=== PATIENT | male | born 1970 | race Caucasian/White ===

== ENCOUNTER 2018-07-12 09:45 | Emergency (ER) | payer MEDICAID ==
[~2018-07-12] VITALS: Ht 185.4 cm; Wt 98.0 kg
[2018-07-12 09:50] VITALS: BP 132/110
[2018-07-12] MEDS ORDERED: dexamethasone sod phosphate 10mg/ml inj IM STA (10:31)
[2018-07-12] MEDS ORDERED: CYCL-1 PO (10:33)
[2018-07-12] MEDS ORDERED: ketorolac trometh inj. 60 MG/2 ML VIAL IM ONE (10:35)
== END 2018-07-12 10:58 | disposition home or self-care (01) ==
LOC: ER 09:46
DX: S39.012A Strain of muscle, fascia and tendon of lower back, initial encounter (principal); M54.42 Lumbago with sciatica, left side; G89.29 Other chronic pain; X50.1XXA Overexertion from prolonged static or awkward postures, initial encounter; Y93.89 Activity, other specified; Y92.89 Other specified places as the place of occurrence of the external cause; Y99.9 Unspecified external cause status
CPT/HCPCS: 96372; 99284; J1100; J1885

== ENCOUNTER 2019-08-04 10:57 | Emergency (ER) | payer MEDICAID ==
[~2019-08-04] VITALS: Ht 188 cm; Wt 105.0 kg
[~2019-08-04 10:57] MED LIST: CYCL-1 PO
[2019-08-04 11:06] VITALS: BP 133/89
[2019-08-04] MEDS ORDERED: ketorolac tromethamine 15mg/ml inj. IM ONE (11:30)
[2019-08-04] MEDS ORDERED: orphenadrine citrate 60mg/2ml inj. IM ONE (11:30)
[2019-08-04] MEDS ORDERED: NAPR-56 PO (11:33)
[2019-08-04] MEDS ORDERED: METH-360 PO (11:33)
== END 2019-08-04 11:50 | disposition home or self-care (01) ==
LOC: ER 10:58
DX: M54.42 Lumbago with sciatica, left side (principal); M54.41 Lumbago with sciatica, right side; G89.29 Other chronic pain; F17.200 Nicotine dependence, unspecified, uncomplicated; F10.99 Alcohol use, unspecified with unspecified alcohol-induced disorder; Z60.2 Problems related to living alone; Z79.899 Other long term (current) drug therapy; Y90.9 Presence of alcohol in blood, level not specified
CPT/HCPCS: 96372; 99283; J1885; J2360

== ENCOUNTER 2019-10-13 07:15 | Emergency (ER) | payer MEDICAID ==
[~2019-10-13] VITALS: Ht 188 cm; Wt 100.0 kg
[~2019-10-13 07:15] MED LIST changes: +METH-360 PO
[2019-10-13 07:31] VITALS: BP 138/93
== END 2019-10-13 07:41 | disposition home or self-care (01) ==
LOC: ER 07:16
DX: Z00.00 Encounter for general adult medical examination without abnormal findings (principal); F10.10 Alcohol abuse, uncomplicated; G89.29 Other chronic pain; Z60.2 Problems related to living alone; Z79.899 Other long term (current) drug therapy; Y90.9 Presence of alcohol in blood, level not specified
CPT/HCPCS: 99281

== ENCOUNTER 2020-12-20 08:51 | Emergency (ER) | payer MEDICAID ==
[~2020-12-20] VITALS: Ht 185.4 cm; Wt 90.9 kg
[2020-12-20 09:22] VITALS: BP 123/81
[2020-12-20] MEDS ORDERED: ketorolac tromethamine 15mg/ml inj. IM ONE (10:00)
[2020-12-20] MEDS ORDERED: orphenadrine citrate 60mg/2ml inj. IM ONE (10:00)
[2020-12-20] MEDS ORDERED: IBUP-1984 PO (10:03)
[2020-12-20] MEDS ORDERED: TRAM50TA2 PO (10:03)
[2020-12-20] MEDS ORDERED: CYCL-1 PO (10:21)
== END 2020-12-20 10:32 | disposition home or self-care (01) ==
LOC: ER 08:52
DX: M54.42 Lumbago with sciatica, left side (principal); G89.29 Other chronic pain; Z72.89 Other problems related to lifestyle; Z60.2 Problems related to living alone; Z79.899 Other long term (current) drug therapy
CPT/HCPCS: 96372; 99284; J1885; J2360

== ENCOUNTER 2021-01-03 10:17 | Emergency (ER) | payer MEDICAID ==
[~2021-01-03] VITALS: Ht 185.4 cm; Wt 86.4 kg
[2021-01-03 10:20] VITALS: BP 125/78
[2021-01-03] MEDS ORDERED: METH4TAB81 PO (11:36)
[2021-01-03] MEDS ORDERED: IBUP-1984 PO (11:36)
[2021-01-03] MEDS ORDERED: ketorolac tromethamine 15mg/ml inj. IM ONE (11:40)
== END 2021-01-03 11:56 | disposition home or self-care (01) ==
LOC: ER 10:18
DX: M54.30 Sciatica, unspecified side (principal); G89.29 Other chronic pain; Z72.89 Other problems related to lifestyle; Z60.2 Problems related to living alone; Z79.899 Other long term (current) drug therapy
CPT/HCPCS: 96372; 99283; J1885

== ENCOUNTER 2021-10-21 10:50 | Emergency (ER) | payer MEDICAID ==
[~2021-10-21] VITALS: Ht 182.9 cm; Wt 84.1 kg
[~2021-10-21 10:50] MED LIST changes: +METH4TAB81 PO
[2021-10-21 11:00] VITALS: BP 143/83
[2021-10-21] MEDS ORDERED: NAPR-56 PO (12:12)
[2021-10-21] MEDS ORDERED: LIDO700A32 TOP (12:12)
== END 2021-10-21 12:21 | disposition home or self-care (01) ==
LOC: ER 10:50
DX: S20.212A Contusion of left front wall of thorax, initial encounter (principal); R07.89 Other chest pain; G89.29 Other chronic pain; F17.200 Nicotine dependence, unspecified, uncomplicated; Z72.89 Other problems related to lifestyle; Z60.2 Problems related to living alone; Z79.899 Other long term (current) drug therapy; X58.XXXA Exposure to other specified factors, initial encounter; Y93.89 Activity, other specified; Y92.89 Other specified places as the place of occurrence of the external cause; Y99.8 Other external cause status
CPT/HCPCS: 71045; 99283

== ENCOUNTER 2024-03-16 12:18 | Emergency (ER) | payer MEDICAID ==
[~2024-03-16] VITALS: Ht 185.4 cm; Wt 93.0 kg
[~2024-03-16 12:18] MED LIST changes: +LIDO700A32 TOP
[2024-03-16 12:50] VITALS: BP 145/91; PULSE 69; TEMP 98; O2SAT 99
[2024-03-16] MEDS ORDERED: TRAM50TA2 PO (13:52)
[2024-03-16] MEDS ORDERED: ketorolac trometh. 30mg/ml inj. IM ONE (14:00)
[2024-03-16 14:12] VITALS: RESP 16
[2024-03-16] MEDS: ketorolac tromethamine 15mg/ml inj. IM ONE (14:12)
== END 2024-03-16 14:16 | disposition home or self-care (01) ==
LOC: ER 12:18
DX: S82.831A Other fracture of upper and lower end of right fibula, initial encounter for closed fracture (principal); Z79.899 Other long term (current) drug therapy; X58.XXXA Exposure to other specified factors, initial encounter; Y93.89 Activity, other specified; Y92.89 Other specified places as the place of occurrence of the external cause; Y99.8 Other external cause status
CPT/HCPCS: 73610; 73630; 96372; 99284; J1885; L4360

== ENCOUNTER 2025-07-06 14:09 | Emergency (ER) | payer MEDICAID ==
[~2025-07-06] VITALS: Ht 182.9 cm; Wt 91.5 kg
[~2025-07-06 14:09] MED LIST changes: +LIDO-52 TOP; -LIDO700A32 TOP
[2025-07-06 14:11] VITALS: TEMP 97.9
--- NOTE | 2025-07-06 14:34 | Physician Documentation ---
History of Present Illness ~ Chief Complaint: ETOH Stated Complaint: ETOH Time Seen by MD: 14:25 Primary Medical Doctor: NONE Mode of Arrival: EMS HPI 55-year-old male presents to the ED after relapsing on alcohol if you weeks ago. He presents very intoxicated according to EMS there was three empty 0.5 gal bottles of hard alcohol where they found him. Patient denies any falls. Denies any history of seizures. Unable to currently care for himself due to severe intoxication Tetanus within 5 years?: Yes (2019) Medication Reconciliation Allergies: Coded Allergies: No Known Allergies (Unverified , 07/12/18) Scheduled Cyclobenzaprine* (Cyclobenzaprine*), 1 TAB PO Q8H Lidocaine (Lidoderm), 1 PATCH TOP DAILY Methocarbamol (Robaxin-750), 1 TAB PO HS Methylprednisolone (Medrol Dosepak), 1 PACKET PO UD Scheduled PRN Cyclobenzaprine* (Cyclobenzaprine*), 1 TABLET PO Q8H PRN for muscle spasms Past Medical History Past Medical History: *MUSCULOSKELETAL*, Chronic Back Pain Past Surgical History: no surgical history Alcohol Use: Abuse Drug Use: none Lives with: Alone Lives In: Home Occupation: employed Review of Systems All Other Systems at this time: Reviewed and Negative ROS As stated above in the HPI, otherwise all systems are reviewed and negative. Physical Exam Vital Signs: RN Vital Signs have been reviewed: Yes, Temperature: 97.9, Heart Rate: 121, Respiratory Rate: 16, BP: 123/82, Pulse Oximetry: 96, Weight: 91.500 Oxygen Flow Rate: 0 Physical Exam General: Alert, slurred spech Respiratory: Lungs clear, no respiratory distress. Cardiovascular: Regular rate and rhythm, no murmurs. Gastrointestinal: Soft, nontender, nondistended. Bowels sounds present. Neurologic: Oriented x4. Psychiatric: Difficult to redirect Skin: Normal color, warm and dry. No edema, no ecchymosis. Progress Progress Note faith patient requesting d/c, i evaluated him at bedside he is not slurring his speech, he is able to stand on his own. no nausea or vomiting. Girlfriend is here and sober to take him home Results/Orders Reviewed/noted all lab results: Yes Results/Orders Medications Received in ER Medications (Trade) Dose Ordered Sig/Josh Route PRN Reason Start Time Stop Time Status Last Admin Dose Admin (0.9% sodium chloride (NS) 1000ml IV soln) 2,000 ml ONCE ONCE IVB 07/06/25 14:30 07/06/25 14:31 DC 07/06/25 14:56 2,000 ML (folic acid inj.) 1 mg ONCE ONCE IV 07/06/25 14:35 07/06/25 14:38 DC 07/06/25 14:57 1 MG (thiamine inj.) 100 mg ONCE ONCE IV 07/06/25 14:35 07/06/25 14:44 DC 07/06/25 14:56 100 MG Vital Signs 07/06/25 07/06/25 07/06/25 07/06/25 14:11 14:15 15:58 17:35 Temp 97.9 Pulse 121 81 69 Resp 17 16 16 18 B/P (MAP) 123/82 157/77 (103) 107/55 (72) Pulse Ox 96 96 99 O2 Flow Rate 0 0 0 Laboratory Tests Test 07/06/25 14:55 07/06/25 15:36 07/06/25 16:03 CBC Comment Sodium Level 134 L Potassium Level 3.7 Chloride Level 96 L Carbon Dioxide Level 20.6 L Anion Gap 17 H Blood Urea Nitrogen 14 Creatinine 0.82 Estimated GFR/1.73 m2 > 90 BUN/Creatinine Ratio 17.1 Glucose Level 105 H Calcium Level 8.6 Magnesium Level 2.1 Total Bilirubin 1.0 Aspartate Amino Transf (AST/SGOT) 108 H Alanine Aminotransferase (ALT/SGPT) 139 H Alkaline Phosphatase 87 Total Protein 8.5 H Albumin 3.9 Globulin 4.6 H Albumin/Globulin Ratio 0.8 L Lipase 59 Chemistry Comments Ethyl Alcohol Level 399 H White Blood Count 4.6 Red Blood Count 5.02 Hemoglobin 16.7 Hematocrit 48.5 Mean Corpuscular Volume 96.6 Mean Corpuscular Hemoglobin 33.3 H Mean Corpuscular Hemoglobin Concent 34.5 Red Cell Distribution Width 15.3 H Platelet Count 210 Mean Platelet Volume 7.9 Neutrophils (%) (Auto) 52.4 Lymphocytes (%) (Auto) 37.1 Monocytes (%) (Auto) 9.9 Eosinophils (%) (Auto) 0.2 Basophils (%) (Auto) 0.4 Neutrophils # (Auto) 2.4 Lymphocytes # (Auto) 1.7 Monocytes # (Auto) 0.5 Eosinophils # (Auto) 0.0 Basophils # (Auto) 0.0 Urine Specimen Description Voided Urine Color Yellow Urine Clarity Slightly cloudy Urine pH 6.0 Urine Specific Nelson 1.010 Urine Protein Negative Urine Glucose (UA) Negative Urine Ketones 40 H Urine Occult Blood Trace-intact Urine Nitrite Negative Urine Bilirubin Negative Urine Urobilinogen 0.2 Urine Leukocyte Esterase Trace H Urine RBC 0-2 Urine WBC 10-20 H Urine Squamous Epithelial Cells Few Urine Bacteria 4+ Urine Culture Indicated Indicated Volume Urine Centrifuged 10 ml Urine Comment Microbiology Date/Time Source Procedure Growth Status 07/06/25 16:55 Urine Voided Urine Culture - Preliminary Culture received. Resulted Medical Decision Making Additional information obtaine: old records Findings simple alcohol intoxication Differential Dx:Considerations: Intoxication - ETOH Departure Disposition: HOME / SELF CARE / HOMELESS Impression: Primary Impression: Alcoholic intoxication Qualified Codes: F10.920 - Alcohol use, unspecified with intoxication, uncomplicated Additional Instructions: Let him sleep on his side tonight. Referrals: NO PRIMARY CARE PROVIDER (PCP) Signature Scribe Signature: gf Attestation: Scribed for Flakito Granados [employer] by Flakito Morales NP . 07/06/25 14:33 FLAKITO GRANADOS NP Jul 06, 2025 14:34 CORAL JAIMES MD Jul 06, 2025 18:02
[2025-07-06] MEDS: thiamine 100mg/ml 2ml inj. IV ONE (14:56)
[2025-07-06] MEDS: normal saline 1000ML IV soln IVB ONE (14:56)
[2025-07-06] MEDS: folic acid 1mg/0.2ml inj IV ONE (14:57)
[2025-07-06 15:17] LABS: CREATININE 0.82 MG/DL (0.60-1.10); TOTAL CARBON DIOXIDE 20.6 MMOL/L (24-32); eCRCL 112 ML/MIN; eGFR > 90 ML/MIN
[2025-07-06 15:30] LABS: ETHANOL 399 MG/DL (<10)
[2025-07-06 15:46] LABS: MEAN PLATELET VOLUME 7.9 FL (7.4-10.4); RED CELL DISTRIBUTION WIDTH 15.3 % (11.5-14.5)
[2025-07-06 16:25] LABS: LEUKOCYTE ESTERASE ,URINE TRACE (Neg); NITRITES, URINE NEGATIVE (Neg); OCCULT BLOOD,URINE TRACE-INTACT (Neg)
[2025-07-06 16:53] LABS: UA COLLECTION TYPE VOIDED
[2025-07-06 16:54] LABS: SQUAMOUS EPITHELIAL CELL,UR FEW /LPF (FEW)
[2025-07-06 17:35] VITALS: BP 107/55; PULSE 69; RESP 18; O2SAT 99
== END 2025-07-06 18:20 | disposition home or self-care (01) ==
LOC: ER 14:09
DX: F10.129 Alcohol abuse with intoxication, unspecified (principal); R06.02 Shortness of breath; Z79.899 Other long term (current) drug therapy; Y90.9 Presence of alcohol in blood, level not specified
CPT/HCPCS: 36415; 80053; 80320; 81001; 83690; 83735; 85025; 87077; 87088; 87186; 96361; 96374; 96375; 99284; J3411; J3490; J7030

== ENCOUNTER 2025-07-07 09:54 | Emergency (ER) | payer MEDICAID ==
[~2025-07-07] VITALS: Ht 185.4 cm; Wt 90.1 kg
[2025-07-07 10:03] VITALS: BP 165/108; PULSE 115; TEMP 98.3; O2SAT 96
--- NOTE | 2025-07-07 10:19 | Physician Documentation ---
History of Present Illness ~ Chief Complaint: Medical Clearance Stated Complaint: MED CLEARANCE OK to notify your PCP?: Yes Primary Medical Doctor: NONE Source: patient Mode of Arrival: POV Exam Limitations: no limitations HPI 55-year-old male presents for clearance to go to alcohol detox center. He states last drink was Thursday night. He says that he was here last night showing signs of withdrawal symptoms but this morning is feeling much better. Still is sweaty and has slight tremors. Tetanus within 5 years?: Yes (2019) Medication Reconciliation Allergies: Coded Allergies: No Known Allergies (Unverified , 07/07/25) Scheduled Cyclobenzaprine* (Cyclobenzaprine*), 1 TAB PO Q8H Lidocaine (Lidoderm), 1 PATCH TOP DAILY Methocarbamol (Robaxin-750), 1 TAB PO HS Methylprednisolone (Medrol Dosepak), 1 PACKET PO UD Scheduled PRN Cyclobenzaprine* (Cyclobenzaprine*), 1 TABLET PO Q8H PRN for muscle spasms Past Medical History Past Medical History: *MUSCULOSKELETAL*, Chronic Back Pain Past Surgical History: no surgical history Alcohol Use: Abuse Drug Use: none Lives with: Alone Lives In: Home Occupation: employed Review of Systems All Other Systems at this time: Reviewed and Negative Physical Exam Vital Signs: RN Vital Signs have been reviewed: Yes, Temperature: 98.3, Source: Oral, Heart Rate: 115, Respiratory Rate: 18, BP: 165/108, Pulse Oximetry: 96, Weight: 90.100 Oxygen Flow Rate: 0 Pulse Oximetry Reflects: adequate oxygenation Physical Exam General: Alert, no distress. HEENT: No injection, moist mucous membranes. Neck: Full range of motion. Respiratory: No respiratory distress, equal chest rise and fall. Chest: No accessory muscle use. Cardiovascular: Regular rate and rhythm. Gastrointestinal: Nondistended. Extremities: Normal range of motion, no deformity. Slight tremors of hands. Neurologic: Oriented x4. Psychiatric: Normal mood and affect. Skin: Normal color, warm and diaphoretic. Progress Results/Orders Reviewed/noted all lab results: Yes Results/Orders Completed Orders - MARIA MAGDALENO [facility] PHYSICIAN Lorazepam Tablet (Ativan Tablet) (07/07/25 10:10) Vital Signs 07/07/25 10:03 Temp 98.3 Pulse 115 Resp 18 B/P (MAP) 165/108 Pulse Ox 96 O2 Flow Rate 0 Medical Decision Making Additional information obtaine: old records Findings He is showing some mild signs of alcohol withdrawal. He says that he is much better and he was last night. 1 mg Ativan tablet given prior to discharge. He does have a pack train driver to take him straight over to alcohol detox rehab after discharge. Differential Dx:Considerations: Include: Intoxication-Alcohol, Intoxication- Other drug, Personality disorder Departure Disposition: 01 HOME / SELF CARE / HOMELESS Impression: Primary Impression: General medical exam Additional Impression: Alcohol withdrawal Condition: Stable Discharge Instructions: Medical Screening Exam Additional Instructions: Has been medically cleared for admissions for detox. 1 mg Ativan tablet given prior to discharge. Referrals: NO PRIMARY CARE PROVIDER (PCP) Education Educated: Patient Educated regarding: diagnosis, treatment, prognosis, need for follow up Additional Comment Medical Screen Exam This patient recieved a medical screening examination. After reviewing the individual's medical complaints with presenting symptoms and performing an appropriate physical examination, it was determined that no immediate life- threatening emergency medical condition is present. This individual is also not a women having contractions. Signature Scribe Signature: . Attestation: Scribed for Emergency,Department by Maria Morales NP . 07/07/25 10:17 Parts of this note were created using [employer] voice recognition software program. While efforts were made to correct any mistakes made by this voice recognition software program, nonsensical phrases may remain in this note. In addition, there may be errors and syntax, grammar, content and spelling. MARIA MAGDALENOP Jul 07, 2025 10:19
[2025-07-07 10:26] VITALS: RESP 16
== END 2025-07-07 10:29 | disposition home or self-care (01) ==
LOC: ER 09:55
DX: Z00.00 Encounter for general adult medical examination without abnormal findings (principal); F10.239 Alcohol dependence with withdrawal, unspecified; G89.29 Other chronic pain; Y90.9 Presence of alcohol in blood, level not specified; Z79.899 Other long term (current) drug therapy; Z60.2 Problems related to living alone
CPT/HCPCS: 99283